=== PATIENT | male | born 1935 | race Caucasian/White ===

== ENCOUNTER 2020-04-21 09:10 | Inpatient (IN) | payer MEDICARE, OTHER ==
[2020-04-21] MEDS ORDERED: IV NS 0.9% 500 ML BAG IV ONE (09:30)
[2020-04-21] MEDS ORDERED: IV NS 0.9% 500 ML IV ONE (09:30)
[2020-04-21] MEDS ORDERED: PIPERACILLIN /TAZOBACTAM 3.375 G in IV D5W 50 ML IV ONE (11:00)
[2020-04-21] MEDS ORDERED: VANCOMYCIN 1 GM in IV D5W 250 ML IV ONE (11:00)
[2020-04-21] MEDS ORDERED: ATOR10TA PO (11:02)
[2020-04-21] MEDS ORDERED: BUSP5TAB3 PO (11:02)
[2020-04-21] MEDS ORDERED: CIPR500T5 PO (11:02)
[2020-04-21] MEDS ORDERED: FLUT16SP16 BNOSTRILS (11:02)
[2020-04-21] MEDS ORDERED: MELO-107 PO (11:02)
[2020-04-21] MEDS ORDERED: LEVO25TA9 PO (11:02)
[2020-04-21] MEDS ORDERED: CLOP75TA15 PO (11:02)
[2020-04-21] MEDS ORDERED: FEBU40TA PO (11:02)
[2020-04-21] MEDS ORDERED: ASPI-1420 PO (11:02)
[2020-04-21] MEDS ORDERED: ACETAMINOPHEN 325 MG TABLET PO PRN (12:00)
[2020-04-21] MEDS ORDERED: HYDROCODONE/APAP 5/325MG TABLET PO PRN (12:00)
[2020-04-21] MEDS ORDERED: ENOXAPARIN SODIUM 30 MG/0.3 ML DISP.SYRIN SQ SCH (12:00)
[2020-04-21] MEDS ORDERED: MAG HYDROX/AL HYDROX/SIMETH 30 ML UDC PO PRN (12:00)
[2020-04-21] MEDS ORDERED: ONDANSETRON HCL/PF 4 MG/2 ML VIAL IVP PRN (12:00)
[2020-04-21] MEDS ORDERED: Z GUARD REMEDY 2 OZ OINT TP PRN (12:00)
[2020-04-21] MEDS ORDERED: FLUTICASONE PROPIONATE 16 GM BOTTLE NS PRN ×2 (12:00→14:12)
[2020-04-21] MEDS ORDERED: MAGNESIUM HYDROXIDE 30 ML UDC PO PRN (12:00)
[2020-04-21] MEDS ORDERED: IV NS 0.9% 1,000 ML IV PRN (12:00)
[2020-04-21] MEDS ORDERED: PIPERACILLIN /TAZOBACTAM 3.375 G in IV D5W 100 ML IV SCH (17:00)
[2020-04-21] MEDS ORDERED: ATORVASTATIN 10 MG TABLET PO SCH (18:00)
[2020-04-21] MEDS ORDERED: FUROSEMIDE 40 MG/4 ML VIAL IV STA (18:51)
[2020-04-21] MEDS ORDERED: methylPREDNISolone SOD SUCC 125 MG/2ML VIAL IV ONE (20:30)
[2020-04-21] MEDS ORDERED: LORAZEPAM INJ 2 MG/ML VIAL IV PRN (20:30)
[2020-04-21] MEDS ORDERED: IPRATROPIUM NEB FS 0.5 MG/2.5 ML AMPUL.NEB NEB SCH (23:30)
[2020-04-21] MEDS ORDERED: ALBUTEROL FS 2.5 MG/3 ML VIAL.NEB NEB SCH (23:30)
[2020-04-22] MEDS ORDERED: methylPREDNISolone SOD SUCC 125 MG/2ML VIAL IV SCH
[2020-04-22] MEDS ORDERED: LEVOTHYROXINE SODIUM 25 MCG TABLET PO SCH (07:30)
[2020-04-22] MEDS ORDERED: FEBUXOSTAT 40 MG PO SCH (09:00)
[2020-04-22] MEDS ORDERED: busPIRone 5 MG TABLET PO SCH (09:00)
[2020-04-22] MEDS ORDERED: ASPIRIN EC 81 MG TABLET.DR PO SCH (09:00)
[2020-04-22] MEDS ORDERED: CLOPIDOGREL BISULFATE 75 MG TABLET PO SCH (09:00)
== END 2020-04-21 21:40 | disposition expired | DRG 177 ==
DX: J15.6 Pneumonia due to other Gram-negative bacteria (principal); G93.41 Metabolic encephalopathy; N17.0 Acute kidney failure with tubular necrosis; J44.0 Chronic obstructive pulmonary disease with (acute) lower respiratory infection; J44.1 Chronic obstructive pulmonary disease with (acute) exacerbation; Z66 Do not resuscitate; E78.5 Hyperlipidemia, unspecified; E03.9 Hypothyroidism, unspecified; F41.9 Anxiety disorder, unspecified; Z79.02 Long term (current) use of antithrombotics/antiplatelets; Z79.82 Long term (current) use of aspirin; Z79.899 Other long term (current) drug therapy